=== PATIENT | female | born 1970 | race Caucasian/White ===

== ENCOUNTER 2016-03-18 14:28 | Emergency (ER) | payer BC ==
[~2016-03-18] VITALS: Ht 154.9 cm; Wt 61.8 kg
[~2016-03-18 14:28] MED LIST: ALPRAZOLAM; CARTIA PO; CARTIA XT120 MG PO; KLONOPIN 0.5MG0.5 MG PO; KLONOPIN2 MG PO; LAMICTAL; LAMICTAL 100MG100 MG PO; LEXAPRO 5MG5 MG PO; MELATONIN3 M1 PO; PAXIL PO; PRIMATENE0.22 MG/A1 IH; PROAIR HFA0.09 MG/AC IH; RITALIN 20M20 MG/TAB PO; SEROQUEL XR200 MG PO; SEROQUEL50 MG PO; SIMVASTATIN10 MG PO; SUDAFED 12HR120 MG PO; SYNTHROID 0.0.025 MG PO; SYNTHROID0.05 MG PO; TRAZADONE HYDR100 MG PO; VIT B12; XANAX .25M0.25 MG/TA PO; ZOCOR 20MG20 MG PO; [UNRECOGNIZED DRUG - OTHER]
[2016-03-18 14:33] VITALS: TEMP 99.1
[2016-03-18] MEDS ORDERED: NORCO 325 MG-51 TAB PO (15:39)
[2016-03-18 15:53] LABS: AMPHETAMINE URINE NEGATIVE; BARBITURATES URINE NEGATIVE; BENZODIAZEPINES URINE POSITIVE; BUPRENORPHINE URINE NEGATIVE; METHADONE URINE NEGATIVE; OPIATES URINE POSITIVE; OXYCODONE URINE NEGATIVE; PHENCYCLIDINE URINE NEGATIVE; PROPOXYPHENE URINE NEGATIVE; THC CANNABINOIDS URINE NEGATIVE
[2016-03-18 15:57] LABS: PH 7 (5-8); SQUAMOUS EPITHELIAL 0-2 /hpf; URINE APPEARANCE Hazy; URINE BACTERIA Rare /hpf; URINE BILIRUBIN Negative (NEGATIVE); URINE BLOOD Negative (NEGATIVE); URINE COLOR Yellow; URINE GLUCOSE Negative (NEGATIVE); URINE KETONE Negative (NEGATIVE); URINE UROBILINOGEN Negative (NEGATIVE); URINE WBC 0-2 /hpf
[2016-03-18 15:58] LABS: BASO # 0.1 (0.0-0.2); BASO % 0.7 % (0.0-2.0); EOS # 0.2 (0.0-0.7); EOS % 1.8 % (0-4.0); GRAN # 6.3 (1.4-6.5); GRAN % 60.5 % (42.2-75.2); HEMATOCRIT 40.7 % (37.0-47.0); HEMOGLOBIN 14.1 g/dl (12.5-16.0); LYMPH # 3.3 (1.2-3.4); LYMPH % 31.7 % (20.0-51.0); MEAN CELL VOLUME 92 fl (80.0-100.0); MEAN CORPUSCULAR HEMOGLOBIN 32 pg (27.0-31.0); MEAN CORPUSCULAR HGB CONC 35 g/dl (33.0-37.0); MEAN PLATELET VOLUME 9.1 fl (7.4-10.4); MONO # 0.5 (0.1-0.6); PLATELET COUNT 248 K/mm3 (130-400); RED BLOOD COUNT 4.42 M/mm3 (4.10-5.30); REDCELL DISTRIBUTION WIDTH-CV 13.2 % (11.5-14.5); WHITE BLOOD COUNT 10.5 K/mm3 (4.8-10.8)
[2016-03-18 16:05] LABS: ADJUSTED CALCIUM 9.3 mg/dL (8.4-10.2); ALANINE AMINOTRANSFERASE 31 U/L (9-52); ALBUMIN 3.9 gm/dL (3.5-5.0); ALKALINE PHOSPHATASE 71 U/L (50-136); ANION GAP 9 mmol/L (7-16); BILIRUBIN,TOTAL 0.7 mg/dL (0.0-1.0); BLOOD UREA NITROGEN 13 mg/dL (7-17); CALCIUM 9.2 mg/dL (8.4-10.2); CARBON DIOXIDE 24 mmol/L (22-30); CHLORIDE 106 mmol/L (98-107); CREATININE, serum 0.81 mg/dL (0.52-1.25); GLUCOSE 97 mg/dL (74-106); SODIUM 139 mmol/L (137-145); TOTAL PROTEIN 6.4 gm/dL (6.4-8.2)
[2016-03-18 16:12] LABS: ACETAMINOPHEN < 10 ug/mL (10-30); SALICYLATE < 1.0 mg/dL
[2016-03-18] MEDS ORDERED: RITALIN 20M20 MG/TAB PO (16:24)
[2016-03-18] MEDS ORDERED: VALIUM 5MG T5 MG/TAB PO (16:27)
[2016-03-18 19:26] VITALS: BP 131/70; PULSE 64
== END 2016-03-18 19:24 | disposition home or self-care (01) ==
LOC: COL.ER 14:28
PROVIDERS: Emergency Medicine
DX: T42.4X1A Poisoning by benzodiazepines, accidental (unintentional), initial encounter (principal); T39.1X1A Poisoning by 4-Aminophenol derivatives, accidental (unintentional), initial encounter; F31.0 Bipolar disorder, current episode hypomanic; F60.3 Borderline personality disorder
CPT/HCPCS: J7030

== ENCOUNTER → 2016-04-02 | Outpatient (CLI) | payer BC ==
[~2016-04-02] MED LIST changes: +NORCO 325 MG-51 TAB PO; +VALIUM 5MG T5 MG/TAB PO
== END ==
LOC: BHSO 12:55
DX: F31.81 Bipolar II disorder (principal)

== ENCOUNTER → 2016-05-22 | Outpatient (CLI) | payer BC | LOC: BHSO 14:21 | DX: F31.73 Bipolar disorder, in partial remission, most recent episode manic (principal) ==

== ENCOUNTER → 2016-07-17 | Outpatient (CLI) | payer BC | LOC: BHSO 13:12 | DX: F31.74 Bipolar disorder, in full remission, most recent episode manic (principal) ==

== ENCOUNTER → 2016-07-18 | Outpatient (CLI) | payer BC | LOC: MC.RAD 14:40 | DX: Z12.31 Encounter for screening mammogram for malignant neoplasm of breast (principal) ==

== ENCOUNTER → 2016-09-10 | Outpatient (CLI) | payer BC | LOC: BHSO 13:27 | DX: F31.73 Bipolar disorder, in partial remission, most recent episode manic (principal) ==

== ENCOUNTER → 2016-11-29 | Outpatient (CLI) | payer BC | LOC: BHSO 11:42 | DX: F31.73 Bipolar disorder, in partial remission, most recent episode manic (principal) ==

== ENCOUNTER → 2017-02-27 | Outpatient (CLI) | payer BC | LOC: BHSO 10:24 | DX: F31.73 Bipolar disorder, in partial remission, most recent episode manic (principal) ==

== ENCOUNTER → 2017-03-06 | Outpatient (CLI) | payer BC ==
[~2017-03-06] MED LIST changes: +ADDERALL20 MG PO; +PRILOTC; +PROZAC40 MG PO
== END ==
LOC: BHSO 16:47
DX: F31.73 Bipolar disorder, in partial remission, most recent episode manic (principal)
CPT/HCPCS: G0463

== ENCOUNTER → 2017-03-06 | Outpatient (CLI) | payer BC | LOC: COL.RAD 11:04 | DX: G93.9 Disorder of brain, unspecified (principal); R43.1 Parosmia | CPT/HCPCS: J7050; Q9967 ==

== ENCOUNTER → 2017-03-11 | Outpatient (CLI) | payer BC ==
[~2017-03-11] MED LIST changes: -ADDERALL20 MG PO; -PRILOTC; -PROZAC40 MG PO
== END ==
LOC: COL.RAD 09:20
DX: G93.89 Other specified disorders of brain (principal)
CPT/HCPCS: A9585

== ENCOUNTER 2017-03-18 12:03 | Emergency (ER) | payer BC ==
[~2017-03-18] VITALS: Ht 157.5 cm; Wt 52.3 kg
[2017-03-18 12:11] VITALS: TEMP 98.2
[2017-03-18] MEDS ORDERED: ADDERALL20 MG PO (12:17)
[2017-03-18] MEDS ORDERED: PROZAC40 MG PO (12:18)
[2017-03-18] MEDS ORDERED: PRILOTC (12:20)
[2017-03-18 13:30] LABS: BASO # 0.1 (0.0-0.2); BASO % 0.7 % (0.0-2.0); EOS # 0.2 (0.0-0.7); EOS % 1.4 % (0-4.0); GRAN # 8.3 (1.4-6.5); GRAN % 67.3 % (42.2-75.2); HEMATOCRIT 49.1 % (37.0-47.0); HEMOGLOBIN 16.8 g/dl (12.5-16.0); LYMPH % 24.6 % (20.0-51.0); MEAN CELL VOLUME 94 fl (80.0-100.0); MEAN CORPUSCULAR HEMOGLOBIN 32 pg (27.0-31.0); MEAN CORPUSCULAR HGB CONC 34 g/dl (33.0-37.0); MEAN PLATELET VOLUME 9.1 fl (7.4-10.4); MONO # 0.7 (0.1-0.6); MONO % 5.5 % (1.7-9.3); PLATELET COUNT 321 K/mm3 (130-400); RED BLOOD COUNT 5.24 M/mm3 (4.10-5.30); REDCELL DISTRIBUTION WIDTH-CV 13.6 % (11.5-14.5)
[2017-03-18 13:49] LABS: ALBUMIN 5.3 gm/dL (3.5-5.0); BILIRUBIN,TOTAL 0.7 mg/dL (0.0-1.0); CREATININE, serum 0.81 mg/dL (0.52-1.25); MAGNESIUM 1.9 mg/dL (1.6-2.3); PHOSPHOROUS 3.6 mg/dL (2.5-4.5); POTASSIUM 3.8 mmol/L (3.4-5.0); TOTAL PROTEIN 7.9 gm/dL (6.4-8.2)
[2017-03-18 14:16] LABS: TSH w REFLEX 0.984 uIU/mL (0.465-4.680)
[2017-03-18 15:15] VITALS: BP 127/80; PULSE 92
== END 2017-03-18 15:29 | disposition home or self-care (01) ==
LOC: COL.ER 12:03
PROVIDERS: Emergency Medicine
DX: I47.1 Supraventricular tachycardia (principal); F41.9 Anxiety disorder, unspecified; F17.210 Nicotine dependence, cigarettes, uncomplicated
CPT/HCPCS: J0153; J2060; J7030

== ENCOUNTER → 2017-05-28 | Outpatient (CLI) | payer BC ==
[~2017-05-28] MED LIST changes: +ADDERALL20 MG PO; +PRILOTC; +PROZAC40 MG PO
== END ==
LOC: BHSO 12:56
DX: F43.10 Post-traumatic stress disorder, unspecified (principal)
CPT/HCPCS: G0463

== ENCOUNTER → 2017-09-10 | Outpatient (CLI) | payer BC | LOC: BHSO 13:59 | DX: F43.10 Post-traumatic stress disorder, unspecified (principal) | CPT/HCPCS: G0463 ==

== ENCOUNTER 2017-11-30 17:02 | Emergency (ER) | payer BC ==
[~2017-11-30] VITALS: Ht 157.5 cm; Wt 52.7 kg
[2017-11-30 17:16] VITALS: BP 129/63; TEMP 98.6
[2017-11-30] MEDS ORDERED: NORCO 325 MG-51 TAB PO (17:42)
[2017-11-30] MEDS ORDERED: CLEOCIN HCL300 MG PO (17:42)
[2017-11-30 18:19] VITALS: PULSE 74
== END 2017-11-30 18:15 | disposition home or self-care (01) ==
LOC: COL.ER 17:02
DX: K02.9 Dental caries, unspecified (principal); K04.7 Periapical abscess without sinus

== ENCOUNTER → 2017-12-17 | Outpatient (CLI) | payer BC ==
[~2017-12-17] MED LIST changes: +CLEOCIN HCL300 MG PO
== END ==
LOC: BHSO 14:40
DX: F43.10 Post-traumatic stress disorder, unspecified (principal)
CPT/HCPCS: G0463

== ENCOUNTER → 2018-06-26 | Outpatient (CLI) | payer BC | LOC: BHSO 09:32 | DX: F43.10 Post-traumatic stress disorder, unspecified (principal) | CPT/HCPCS: G0463 ==

== ENCOUNTER → 2018-09-30 | Outpatient (CLI) | payer BC | LOC: BHSO 10:54 | DX: F43.10 Post-traumatic stress disorder, unspecified (principal) | CPT/HCPCS: G0463 ==

== ENCOUNTER → 2019-01-13 | Outpatient (CLI) | payer BC | LOC: COL.RAD 12:30 | DX: R60.0 Localized edema (principal); S67.194A Crushing injury of right ring finger, initial encounter ==

== ENCOUNTER → 2019-03-31 | Outpatient (CLI) | payer BC | LOC: BHSO 10:59 | DX: F43.10 Post-traumatic stress disorder, unspecified (principal) | CPT/HCPCS: G0463 ==

== ENCOUNTER → 2019-09-28 | Outpatient (CLI) | payer BC | LOC: BHSO 11:09 | DX: F43.10 Post-traumatic stress disorder, unspecified (principal) | CPT/HCPCS: G0463 ==